=== PATIENT | male | born 1940 | race Caucasian/White ===

== ENCOUNTER 2017-02-13 13:05 | Day surgery (SDC) | payer OTHER ==
[~2017-02-13] VITALS: Ht 185.4 cm; Wt 79.9 kg
[2017-02-13 14:28] VITALS: Ht 185.4 cm; Wt 79.9 kg
[2017-02-13] MEDS ORDERED: LANT3I SC (14:40)
[2017-02-13] MEDS ORDERED: ASPI-535 PO (14:40)
[2017-02-13] MEDS ORDERED: METF500T3 PO (14:40)
[2017-02-13] MEDS ORDERED: SIMV10TA6 PO (14:40)
[2017-02-13] MEDS ORDERED: SITA100T8 PO (14:40)
[2017-02-13] MEDS ORDERED: INSU100C SQ (14:40)
[2017-02-13] MEDS ORDERED: PANT40SU PO (14:40)
[2017-02-13] MEDS ORDERED: LISINOPRIL (14:40)
[2017-02-13 15:19] VITALS: BP 132/70; PULSE 66; RESP 16
--- NOTE | 2017-02-13 15:54 | OPPN ---
Date/Time of Note Date/Time of Note DATE: 02/13/17 TIME: 15:49 Proc Note GI Free Text/Dictation Procedure Date: 02/13/2017 Preoperative Diagnosis: * Colorectal cancer screening Postoperative Diagnosis: * 3 small 3-4 mm polyps in the rectum. Ablated * 4 mm polyp in the transverse colon. Ablated * Moderate-sized internal hemorrhoids * Otherwise normal colonoscopy to cecum Plan: * Review pathology * High-fiber diet * Annual Hemoccult stool testing * Surveillance colonoscopy in 5 years Procedure Performed: * Colonoscopy with polyp ablation Surgeon: Finesse Gomez MD Physician Liaison: None Second Mathematics Department Chair: None Anesthesia/Sedation Versed 4 mg/fentanyl 75 mcg and Versed push by Dr Gomez Tourniquet Time: NA Estimated Blood Loss: None Transfusion Required: No Specimens: #1 rectal polyps #2 transverse colon polyp Grafts/Implants: None Tubes/Drains: NA Complications: None Pt. Condition Post Procedure: Stable Disposition: Home After informed consent, with the patient/relatives understanding the procedure, its indications and potential risks and complications, including but not limited to: Allergic reaction, bleeding, perforation, infection, and after all pertinent questions were answered to the patient's satisfaction, the patient/ relatives signed the witnessed informed consent. Following this, premedication was administered slowly IV push under careful cardiovascular and respiratory monitoring with pulse OXIMETRY, automatic blood pressure, and olap developer. Once the sedative effect was achieved, the patient was placed in the left lateral decubitus position, digital rectal examination was performed. The colonoscope was then introduced and advanced under visual control throughout all segments of the colon including: the rectum, sigmoid, descending colon, splenic flexure, transverse colon, hepatic flexure, ascending colon and finally reaching the cecum which was clearly identified by transillumination, finger indentation and the ileocecal valve. Careful examination of the mucosa of the lower gastrointestinal tract both on insertion as well as withdrawal of the instrument disclosed the following findings: PREPARATION QUALITY: [Adequate], RECTAL EXAM: The anorectal area was visualized examined and digital rectal examination performed with the following findings: No evidence of perirectal disease, no masses. COLONIC MUCOSA: The mucosa of all segments of the colon was carefully examined and showed the following findings: There are 3 small sessile polyps measuring 3-4 mm in the rectum, they are pale and likely hyperplastic. There were ablated with biopsy forceps. There was a 4 mm polyp in the transverse colon. Ablated with biopsy forceps. Moderate- sized internal hemorrhoids are present. Otherwise the examined mucosa appears within normal limits. There is no evidence of inflammatory changes, diverticular formation, other neoplasms, vascular malformation, or any other abnormality. The instrument was then withdrawn, the patient tolerated the procedure well and was transferred out of the Endoscopy Suite awake and in good condition to continue recovery under observation. Procedure date: Feb 13, 2017 FINESSE GOMEZ MD Feb 13, 2017 15:54
--- NOTE | 2017-02-13 16:01 | OPPN ---
Date/Time of Note Date/Time of Note DATE: 02/13/17 TIME: 15:55 Proc Note GI Free Text/Dictation Preoperative Diagnosis: Dyspepsia Postoperative Diagnosis: * Distal esophageal web, nonobstructive * Mild distal esophagitis * Hiatal hernia * Moderate gastritis. Rule out H follow infection. Biopsies obtained Plan: * PPI therapy * Review pathology Procedure Performed: EGD with biopsies Surgeon: Finesse Gomez MD Philosophy Lecturer: None Second Pan Reclaim Processor: None Anesthesia/Sedation: Versed 4 mg/fentanyl 75 mcg and versed under the direction of Dr Gomez Tourniquet Time: NA Estimated Blood Loss: None Transfusion Required: No Specimens: Gastric body and antrum Grafts/Implants: None Tubes/Drains: NA Complications: None Pt. Condition Post Procedure: Stable Disposition: Home After informed consent, with the patient/relatives understanding the procedure, its indications, potential risks and complications, including but not limited to : allergic reaction, bleeding, perforation or infection, and after all pertinent questions were answered to the patients satisfaction, the patient/ relatives signed witnessed informed consent. Following this, premedication was administered slowly IV push under careful cardiovascular and respiratory monitoring with pulse oximetry, automatic blood pressure, and loss prevention/safety district manager. Once the sedative effect was achieved the patient was place in the left lateral decubitus, the panendoscope was introduced and advanced under visual control. Careful examination of the upper gastrointestinal tract, both on insertion as well as withdrawal of the instrument disclosing the following findings: ESOPHAGUS: the mucosa of the entire esophagus was carefully examined and showed the following findings: There is a narrow non-obstructive web distal esophagus. There is mild erythema and edema of the mucosa. Otherwise the mucosa appears within normal limits. There is no evidence of varices, neoplasm, or stricture. Hiatal Hernia identified. STOMACH: Upon entrance to the stomach air was insufflated, the gastric bentley distended normally. The mucosa of the fundus, body and antrum of the stomach was carefully examined both head-on and on retroflexion, and showed moderate erythema and edema of the mucosa of the body and antrum. Biopsies were obtained to rule out H. pylori infection. Otherwise the mucosa appears within normal limits with no abnormalities. There is no evidence of ulcers or neoplasm. PYLORUS: The pylorus was carefully examined and showed the following findings: []the pylorus appears patent and within normal limits, with no evidence of gastric outlet obstruction. DUODENUM: The duodenal mucosa was carefully examined in the duodenal bulb as well as the second portion of the duodenum and showed the following findings: []the mucosa appears unremarkable with no evidence of duodenitis, ulcer or neoplasm. Procedure date: Feb 13, 2017 FINESSE GOMEZ MD Feb 13, 2017 16:01
[2017-02-13] MEDS ORDERED: MIDAZOLAM 1 MG/ML 2 ML INJ ONE ×2 (16:06)
[2017-02-13] MEDS ORDERED: FENTAnyl 50 MCG/ML VIAL ONE (16:06)
[2017-02-13 16:19] VITALS: BP 137/82; PULSE 66; RESP 10
== END 2017-02-13 15:38 | disposition home or self-care (01) ==
LOC: GIL 13:05
PROVIDERS: ATTEND Internal Medicine Gastroenterology
DX: Z12.11 Encounter for screening for malignant neoplasm of colon (principal); D12.7 Benign neoplasm of rectosigmoid junction; K20.8 Other esophagitis; K44.9 Diaphragmatic hernia without obstruction or gangrene; K29.70 Gastritis, unspecified, without bleeding; D12.3 Benign neoplasm of transverse colon; K62.1 Rectal polyp; K64.8 Other hemorrhoids; E11.9 Type 2 diabetes mellitus without complications; E78.5 Hyperlipidemia, unspecified
CPT/HCPCS: 43239; 45380; 82962; 88305; 88312; J2250; J3010; Z7610